=== PATIENT | female | born 1950 | race Caucasian/White ===

== ENCOUNTER 2022-01-19 01:58 | Day surgery (SDC) | payer MEDICARE, SELFPAY ==
--- NOTE | 2022-01-17 09:27 | PC.NURSE ---
Report to the Outpatient Waiting Room, entrance under the green pavilion located off [facility], at time _1145 on date _01/19/22 . OR Time: __1345 . - You and your visitor will be asked a series of questions to screen for COVID 19 for your protection. - Only one visitor is allowed at this time. - The patient visitor is requested to leave or wait in car when not with patient. - A mask is required within the hospital. Patients may have clear liquids (water, carbonated beverages, clear teas, apple juice) until 3 hours prior to surgery with a maximum of 20 ounces. - No food from midnight until time of surgery - Infants may have breast milk until 4 hours before surgery, infant formula 6 hours prior to surgery. - Children will be allowed to drink immediately following surgery. If applicable, please bring a bottle or sippy cup to assist with drinking. Juice, water, soda, and popsicles are readily available. For infants on formula, please bring formula the day of surgery. Pacifiers are allowed. Take the following medications with a SIP of water the morning of surgery: __METOPROLOL Medications to discontinue per physician ____ALL VITAMINS AND SUPPLEMENTS 3 DAYS PRE OP Date to take last dose__PT STATES LAST DOSE 01/17/22 Please no make-up, nail guinean, hairspray, perfume, deodorant, or body powder the day of surgery. No jewelry (including any body piercings) or valuables the day of surgery, leave them at home. Please take a shower or bath the night before, or the morning of, surgery with an antibacterial soap. Wear comfortable, loose fitting clothing. Children are encouraged to wear pajamas. - Jewelry must be removed prior to entering the operating room. Rings and piercings that are not removed may be cut off. - The hospital will not accept responsibility for valuables. - Please leave all valuables, including medications, at home the day of surgery. If you are going home after surgery, a licensed automation driver must drive you home. - NO public transportation without another adult. - We recommend that an adult stay with you for 24 hours following discharge. - We also recommend that you do not drive, make important decision, drink alcoholic beverages, or take any drugs that were not prescribed by your health care provider for at least 24 hours after your discharge time. For Pediatric surgeries, we recommend two adults accompany the child home (only one inside the building at this time). Follow any additional instructions given to you from your surgeon. If you or anyone in your household have experienced Covid symptoms in the past week, please notify your surgeon or the nurse liaison at the phone number below for possible testing. Telephone instructions given to __PATIENT and asked if any additional questions and then verbalized understanding. Patient advised to call surgeon office or pre surgery nurse liaison [phone] if any additional questions.
[2022-01-17 09:41] VITALS: BMI 27.9
--- NOTE | ~2022-01-19 | XR_ITS ---
EXAMINATION: XR abdomen/kub 1V DATE: 01/19/2022 12:29 INDICATION: Renal stone TECHNIQUE: A supine view of the abdomen on 2 radiographs was obtained. COMPARISON: None. FINDINGS: Cholecystectomy clips in right upper quadrant. There a three 2-3 mm round densities projecting over t he lower pole of the left kidney which could represent renal stones or phleboliths. 1-2 mm calcificat ion projecting of the midline of the deep pelvis likely either a phlebolith or potentially have passe d stone within the bladder. Larger round calcification projecting over the inferior spleen and inferi or right hepatic lobe which could represent either costochondral calcifications were calcific granulo cornejo. No stones seen along the course of the ureters. No dilated loops of bowel to suggest obstructio n. Irregular likely pessary projecting over the midline of the inferior pelvis. Severe lower lumbar s pondylosis. IMPRESSION: 1. Three 2-3 mm likely stones at the lower pole of the left kidney and possible 1-2 mm gallstone in t he bladder versus phleboliths Reviewed, dictated and finalized at location B. IMPRESSION: 1. Three 2-3 mm likely stones at the lower pole of the left kidney and possible 1-2 mm gallstone in the bladder versus phleboliths
--- NOTE | ~2022-01-19 | CT_ITS ---
EXAMINATION: CT abdomen pelvis wo con DATE: 01/19/2022 13:20 INDICATION: Left ureteral stone TECHNIQUE: Computed tomography (CT) of the abdomen and pelvis was performed without intravenous contr ast. Automated exposure control and iterative reconstruction technique were employed. Exam dose: 234 .94 mGy-cm total exam DLP. COMPARISON: 01/19/2022 KUB FINDINGS: Lung bases clear. Normal heart size. No pericardial or pleural effusion. Status post cholecystectomy. No bile duct dilatation. No hepatic, splenic, pancreatic mass lesion or pancreatic calcification. No pancreatic duct dilatation. Probable 2 cm splenule. Normal morphology of the adrenal glands. 7 cm lower pole right renal cyst. 2. contiguous approximately 3 mm mid left renal nonobstructing calculi. 4 mm nonobstructing lower seema e left renal calculus. 2.6 cm probable mid left renal cyst. No ureteral calculus or hydroureteronephrosis. There is atherosclerotic calcification but normal jesi chanelle of the abdominal aorta and iliac and femoral arteries. No intraperitoneal or retroperitoneal or p elvic mass lesion or adenopathy or ascites. Pessary device. The urinary bladder is unremarkable. Status post hysterectomy. Normal appendix. Diverticulosis of left and right colon; no CT evidence of diverticulitis. No bowel obstruction, bowel wall thickening, pneumatosis or intraperitoneal free air. Small fat-containing umbilical hernia. Moderately severe degenerative disc disease at L3-4 with minimal retrolisthesis, and severe degenerat ab disc disease at L4-5 and L5-S1. There is prominent degenerative change at the apophyseal joints o f the lumbar spine. No suspicious osteolytic or osteosclerotic lesions. IMPRESSION: Bilateral renal cysts Nonobstructive left renal calculi Status post cholecystectomy Normal appendix Diverticulosis of the colon; no CT evidence of diverticulitis Reviewed, dictated and finalized at Location A. Reviewed, dictated and finalized at location A.
--- NOTE | 2022-01-19 06:49 | WPDHPUPDATE1 ---
History and Physical Update Update Date/Time: 01/19/22 06:49 History and Physical has been reviewed, including an updated exam of the patient. There are NO changes in the patient's condition. Risks, benefits, and alternatives have been discussed and questions answered. Patient agrees to proceed with procedure.
--- NOTE | 2022-01-19 12:28 | SUR.PREOP ---
Discussed patient's suggestion stone may have passed into bladder with Dr Rust. Order received and patient taken to xy per w/c.
[2022-01-19 12:36] VITALS: BP 146/71; PULSE 65; RESP 16; TEMP 36.3; O2SAT 100
[2022-01-19] MEDS: LACTATED RINGERS 1,000 ML 30 ML IV CONT (13:06)
--- NOTE | 2022-01-19 13:21 | WPDANESEPPF ---
Anes - Initial Pre Proc Eval Procedure: Operation Date: 01/19/22 13:15 Proposed Procedures p Cystoscopy, Left Ureteroscopy, Left Stone Extraction, Possible Retrograde Pyelogram, Possble Left Stent Placement, Possible Holmium Laser Lithotripsy - Zeb Manuel MD Date/Time: 01/19/22 13:21 Surgeon: Zeb Manuel MD Pre Op Diagnosis: Left Renal Stone Patient Data Age: 71 Gender: F Height: 1.65 m Weight: 76.9 kg Last Vital Signs Temp 36.3 C L 01/19/22 12:36 Pulse 65 01/19/22 12:36 Resp 16 01/19/22 12:36 BP 146/71 H 01/19/22 12:36 Pulse Ox 100 01/19/22 12:36 O2 Del Method Room Air 01/19/22 12:36 Allergies Allergy/AdvReac Type Severity Reaction Status Date / Time clarithromycin [From Biaxin] AdvReac Gastrointestinal Verified 01/19/22 11:17 Upset dextromethorphan AdvReac THROAT Verified 01/19/22 11:17 Swelling levofloxacin [From Levaquin] AdvReac Unknown Verified 01/19/22 11:17 meloxicam AdvReac Hypertensio Verified 01/19/22 11:17 n pneumococcal vaccine AdvReac Swelling Verified 01/19/22 11:17 AT INJECTION SITE Sulfa (Sulfonamide AdvReac MOUTH SORES Verified 01/19/22 11:17 Antibiotics) Home Medications Medication Instructions Recorded Confirmed Type Lactobacillus 1 cap PO DAILY 01/17/22 01/19/22 History acidophilus-Bifidobac.animalis 2.5 billion cell capsule (Daily Probiotic) azelastine 137 mcg (0.1 %) nasal 2 spray intranasal HS 01/17/22 01/19/22 History spray aerosol biotin 1,000 mcg chewable tablet 2,000 mcg PO DAILY 01/17/22 01/19/22 History calcium carbonate 600 mg-vitamin 1 tablet PO DAILY 01/17/22 01/19/22 History D3 10 mcg (400 unit) tablet (Calcium 600 + D(3)) cholecalciferol (vitamin D3) 50 50 mcg PO DAILY 01/17/22 01/19/22 History mcg (2,000 unit) tablet ipratropium bromide 42 mcg (0.06 2 spray intranasal DAILY 01/17/22 01/19/22 History %) nasal spray losartan 100 1 tablet PO HS 01/17/22 01/19/22 History mg-hydrochlorothiazide 25 mg tablet melatonin 3 mg tablet 3 mg PO HS PRN Insomnia 01/17/22 01/19/22 History metoprolol succinate 25 mg 1.5 tablet PO QAM 01/17/22 01/19/22 History tablet,extended release 24 hr montelukast 10 mg tablet 1 tablet PO HS 01/17/22 01/19/22 History multivitamin 1 tablet PO DAILY 01/17/22 01/19/22 History omega 5-ofe-sav-fish oil 60 mg-90 1 cap PO DAILY 01/17/22 01/19/22 History mg-500 mg capsule (Fish Oil) pantoprazole 40 mg tablet,delayed 1 tablet PO DAILY 01/17/22 01/19/22 History release psyllium 500 mg capsule 0.52 g PO BID 01/17/22 01/19/22 History rosuvastatin 10 mg tablet 1 tablet PO HS 01/17/22 01/19/22 History vitamin B complex 1 cap PO DAILY 01/17/22 01/19/22 History Patient hx anesthesia problems: none Family hx anesthesia problems: none Results Review: All pre-operative results and documents have been reviewed as part of the pre-operative evaluation. [facility] Past Medical History Medical History Hyperlipidemia Hypertension SARMAD (obstructive sleep apnea) Social History Social History Smoking status: Never smoker Living arrangements: alone Spiritual care concerns: No Anes - Eval Final PreProcedure Day of Procedure 01/19/22 13:21 Patient weight: overweight Heart: regular rate and rhythm Lungs: clear to auscultation Airway: Mallampati scale class II Neurological: alert and oriented Last oral intake: >/= 8 hours ASA classification: III Emergent: no Anesthetic plan: proceed Anesthesia type and monitoring: general LMA and standard monitoring Results Review: All pre-operative results and documents have been reviewed as part of the pre-operative evaluation. Informed Consent: The patient's anesthetic plan and its attendant risks and benefits were discussed with the patient/family/POA. Questions were solicited and
--- NOTE | 2022-01-25 06:34 | PM.HPGS ---
History of Present Illness History of Present Illness Consent: Risks, benefits, and alternatives have been discussed and questions answered. Patient agrees to proceed with procedure. Chief complaint: Left Renal Stone Narrative: Ann Duke is a 71 year old female recently referred by her primary care physician and [place] with an obstructing painful small left distal ureteral calculus. Patient was scheduled for endoscopic stone extraction but on the morning of this procedure CT scan showed the stone had passed into her bladder. The procedure was canceled she was discharged without intervention. Review of Systems Cardiovascular: Cardiovascular: Denies chest pain, Denies lightheadedness, Denies palpitations and Denies dyspnea Respiratory: Respiratory: Denies dyspnea Gastrointestinal: Gastrointestinal: Denies diarrhea, Denies nausea and Denies vomiting Genitourinary: Genitourinary: Denies hematuria and Denies dysuria Endocrine: Endocrine: Denies palpitations PMFSH Past Medical History Medical History Hyperlipidemia Hypertension SARMAD (obstructive sleep apnea) Social History Social History Smoking status: Never smoker Living arrangements: alone Spiritual care concerns: No Meds Home Medications and Allergies Home Medications Medication Instructions Recorded Confirmed Type Lactobacillus 1 cap PO DAILY 01/17/22 01/19/22 History acidophilus-Bifidobac.animalis 2.5 billion cell capsule (Daily Probiotic) azelastine 137 mcg (0.1 %) nasal 2 spray intranasal HS 01/17/22 01/19/22 History spray aerosol biotin 1,000 mcg chewable tablet 2,000 mcg PO DAILY 01/17/22 01/19/22 History calcium carbonate 600 mg-vitamin 1 tablet PO DAILY 01/17/22 01/19/22 History D3 10 mcg (400 unit) tablet (Calcium 600 + D(3)) cholecalciferol (vitamin D3) 50 50 mcg PO DAILY 01/17/22 01/19/22 History mcg (2,000 unit) tablet ipratropium bromide 42 mcg (0.06 2 spray intranasal DAILY 01/17/22 01/19/22 History %) nasal spray losartan 100 1 tablet PO HS 01/17/22 01/19/22 History mg-hydrochlorothiazide 25 mg tablet melatonin 3 mg tablet 3 mg PO HS PRN Insomnia 01/17/22 01/19/22 History metoprolol succinate 25 mg 1.5 tablet PO QAM 01/17/22 01/19/22 History tablet,extended release 24 hr montelukast 10 mg tablet 1 tablet PO HS 01/17/22 01/19/22 History multivitamin 1 tablet PO DAILY 01/17/22 01/19/22 History omega 4-wyb-njo-fish oil 60 mg-90 1 cap PO DAILY 01/17/22 01/19/22 History mg-500 mg capsule (Fish Oil) pantoprazole 40 mg tablet,delayed 1 tablet PO DAILY 01/17/22 01/19/22 History release psyllium 500 mg capsule 0.52 g PO BID 01/17/22 01/19/22 History rosuvastatin 10 mg tablet 1 tablet PO HS 01/17/22 01/19/22 History vitamin B complex 1 cap PO DAILY 01/17/22 01/19/22 History Allergies Allergy/AdvReac Type Severity Reaction Status Date / Time clarithromycin [From Biaxin] AdvReac Gastrointestinal Verified 01/19/22 11:17 Upset dextromethorphan AdvReac THROAT Verified 01/19/22 11:17 Swelling levofloxacin [From Levaquin] AdvReac Unknown Verified 01/19/22 11:17 meloxicam AdvReac Hypertensio Verified 01/19/22 11:17 n pneumococcal vaccine AdvReac Swelling Verified 01/19/22 11:17 AT INJECTION SITE Sulfa (Sulfonamide AdvReac MOUTH SORES Verified 01/19/22 11:17 Antibiotics) Exam Const: General: no acute distress Resp: Effort & Inspection: normal respiratory effort GI: Inspection: non-distended GI Palp: No abdominal tenderness and No Guarding due to palpation present (GI) Auscultation: normal bowel sounds Assessment and Plan Assessment and plan (1) Left ureteral stone: Code(s): N20.1 - Calculus of ureter Status: Acute Assessment and Plan: Spontaneously passed left ureteral stone. Planned endoscopic stone extr
== END 2022-01-19 13:38 | disposition home or self-care (01) ==
PROVIDERS: PCP Family Medicine; Visit Provider Urology
PROC: (CPT 52352; principal; 2022-01-19 13:15)
DX: N20.1 Calculus of ureter (principal); Z53.8 Procedure and treatment not carried out for other reasons
CPT/HCPCS: 74018; 74176; 99212; G0463; J7120

== ENCOUNTER 2024-10-05 15:52 | Outpatient (CLI) | payer MEDICARE, SELFPAY ==
--- NOTE | ~2024-10-05 | XR_ITS ---
Exam: Abdomen 1V HISTORY: Kidney stone on left side COMPARISON: 01/19/2022 TECHNIQUE: Supine images of the abdomen FINDINGS: Bowel gas pattern is non-obstructive. Fecal stasis projecting over the bilateral kidneys, precluding adequate evaluation for the presence o r absence of renal calculi. Clips within the right upper quadrant suggesting prior cholecystectomy. Pessary within the pelvis. There is no free air or deep sulci. No pathologic calcifications are seen. IMPRESSION: Fecal stasis projecting over the bilateral kidneys, precluding adequate evaluation for the presence o r absence of renal calculi. Reviewed, dictated and finalized at location A. IMPRESSION: Fecal stasis projecting over the bilateral kidneys, precluding adequate evaluat ion for the presence or absence of renal calculi.
== END 2024-10-05 15:53 | disposition home or self-care (01) ==
LOC: MICIMG 15:54
PROVIDERS: PCP Family Medicine; Visit Provider Urology
DX: N20.0 Calculus of kidney (principal)
CPT/HCPCS: 74018

== ENCOUNTER 2025-05-03 15:34 | Outpatient (CLI) | payer MEDICARE, SELFPAY ==
--- NOTE | ~2025-05-03 | XR_ITS ---
EXAMINATION: XR abdomen/kub 1V, 05/03/2025 15:41 CDT HISTORY: Kidney stone on left side COMPARISON: No comparisons available. Technique: 3 view. Findings: Bowel gas pattern unremarkable. No obstruction. Moderate fecal content obscures evaluation for renal calculi No acute osseous abnormality. Impression: 1. No acute abnormality. Reviewed, dictated and finalized at location P. Impression: 1. No acute abnormality.
== END 2025-05-03 15:35 | disposition home or self-care (01) ==
PROVIDERS: PCP Family Medicine; Visit Provider Urology
DX: N20.0 Calculus of kidney (principal)
CPT/HCPCS: 74018